=== PATIENT | female | born 1980 | race Caucasian/White ===

== ENCOUNTER 2017-12-04 17:08 | Emergency (ER) | payer OTHER ==
[2017-12-04] MEDS: morphine 4 MG/ML VIAL IV (21:04)
[2017-12-04] MEDS: SOD CHLORIDE 0.9% 1,000 ML IV (21:04)
[2017-12-04 21:50] LABS: ADD MAN DIFF? NO
[2017-12-04 21:56] LABS: WHITE BLOOD COUNT 9.8 10^3/ul (4.8-10.8)
[2017-12-04 21:56] LABS: BASOPHIL # 0.1 10^3/ul (0.0-0.1); BASOPHILS % 0.9 % (0.0-2.0); EOSINOPHILS # 0.4 10^3/ul (0.0-0.5); EOSINOPHILS % 4.1 % (0.0-7.0); HEMATOCRIT 41.2 % (37.0-47.0); HEMOGLOBIN 14.2 g/dl (12.0-16.0); LYMPHOCYTES # 2.8 10^3/ul (0.8-2.9); LYMPHOCYTES % 28.5 % (15.0-51.0); MEAN CORPUSCULAR HEMOGLOBIN 29.3 pg (29.0-33.0); MEAN CORPUSCULAR HGB CONC 34.5 g/dl (32.0-37.0); MEAN CORPUSCULAR VOLUME 84.9 fl (82.0-101.0); MEAN PLATELET VOLUME 9.7 fl (7.4-10.4); MONOCYTE # 0.6 10^3/ul (0.3-0.9); MONOCYTES % 5.8 % (0.0-11.0); NEUTROPHIL # 5.9 10^3/ul (1.6-7.5); NEUTROPHILS % 59.9 % (39.0-77.0); PLATELET COUNT 415 10^3/UL (140-415); RED BLOOD COUNT 4.85 10^6/ul (4.20-5.40); RED CELL DISTRIBUTION WIDTH 13.6 % (11.5-14.5)
[2017-12-04 22:15] LABS: ALANINE AMINOTRANSFERASE 33 IU/L (13-69); ALBUMIN/GLOBULIN RATIO 1.35; ALKALINE PHOSPHATASE 115 IU/L (42-121); ANION GAP 18 (8-16); ASPARTATE AMINO TRANSFERASE 31 IU/L (15-46); BILIRUBIN,INDIRECT 0.1 mg/dl (0-1.1); BILIRUBIN,TOTAL 0.1 mg/dl (0.2-1.3); BLOOD UREA NITROGEN 10 mg/dl (7-20); CALCIUM 9.7 mg/dl (8.4-10.2); CARBON DIOXIDE 29 mmol/L (21-31); CHLORIDE 102 mmol/L (97-110); GLUCOSE 92 mg/dl (70-220); LIPASE 43 U/L (23-300); POTASSIUM 3.1 mmol/L (3.5-5.1); SODIUM 146 mmol/L (135-144); TOTAL PROTEIN 8.7 g/dl (6.1-8.1)
[2017-12-04 23:26] LABS: ADD UMIC YES; UR ASCORBIC ACID NEGATIVE (NEGATIVE); UR BACTERIA FEW /HPF (NONE SEEN); UR BILIRUBIN (Dip) NEGATIVE (NEGATIVE); UR BLOOD (Dip) 2+ mg/dL (NEGATIVE); UR CLARITY SLIGHTLY CLOUDY (CLEAR); UR COLOR STRAW (YELLOW); UR GLUCOSE (Dip) NEGATIVE (NEGATIVE); UR KETONES (Dip) NEGATIVE (NEGATIVE); UR LEUKOCYTE ESTERASE (Dip) TRACE Leu/ul (NEGATIVE); UR NITRITE (Dip) NEGATIVE (NEGATIVE); UR RBC 3 /HPF (0-5); UR SQUAMOUS EPITHELIAL CELL FEW /HPF (FEW); UR TOTAL PROTEIN (Dip) NEGATIVE (NEGATIVE); UR UROBILINOGEN (Dip) NEGATIVE (NEGATIVE); UR WBC 11 /HPF (0-5)
== END 2017-12-05 00:55 | disposition home or self-care (01) ==
LOC: FTE 12-05 00:55
DX: L02.221 Furuncle of abdominal wall (principal); N39.0 Urinary tract infection, site not specified; R19.7 Diarrhea, unspecified; I10 Essential (primary) hypertension; Z87.891 Personal history of nicotine dependence
CPT/HCPCS: 36415; 74176; 80053; 81001; 83690; 85025; 96374; 99285-25

== ENCOUNTER 2018-08-03 16:15 | Emergency (ER) | payer OTHER ==
[2018-08-03] MEDS: IBUPROFEN 600 MG TAB PO (17:50)
== END 2018-08-03 19:18 | disposition home or self-care (01) ==
LOC: FTE 16:15
DX: S50.02XA Contusion of left elbow, initial encounter (principal); I10 Essential (primary) hypertension; W18.39XA Other fall on same level, initial encounter; Y92.9 Unspecified place or not applicable
CPT/HCPCS: 29130; 73000; 73080-LT; 73140; 99283-25

== ENCOUNTER 2018-10-23 21:12 | Emergency (ER) | payer OTHER ==
[2018-10-23] MEDS: ONDANSETRON (ODT) 4 MG TAB ODT (22:02)
[2018-10-23 22:15] LABS: URINE PH (Dip) POC 6.5 (5.0-8.5)
[2018-10-23 22:15] LABS: URINE BLOOD (Dip) POC 1+ (NEGATIVE); URINE GLUCOSE (Dip) POC Negative (NEGATIVE); URINE KETONES (Dip) POC Negative (NEGATIVE); URINE LEUKOCYTE EST (Dip) POC Negative (NEGATIVE); URINE NITRITE (Dip) POC Negative (NEGATIVE); URINE TOTAL PROTEIN POC 1+ (NEGATIVE)
[2018-10-23] MEDS: KETOROLAC 30 MG INJ IM (22:23)
== END 2018-10-23 23:10 | disposition home or self-care (01) ==
LOC: FTE 21:12
DX: R05 Cough (principal); R11.10 Vomiting, unspecified; I10 Essential (primary) hypertension; R19.7 Diarrhea, unspecified
CPT/HCPCS: 71045; 81003; 81025; 96372; 99284-25